=== PATIENT | male | born 1990 | race Caucasian/White ===

== ENCOUNTER 2017-09-25 09:26 | Outpatient (CLI) | payer MEDICARE, MEDICAID ==
[~2017-09-25 09:26] MED LIST: CLON0.5T23 PO; HYDR-569 PO; IBUP-1984 PO; OMEP20TA5 PO
== END 2017-09-25 10:06 | disposition home or self-care (01) ==
LOC: WOUND CARE 09:26 → EDSTATUS 09:30 → WOUND CARE 10:06
PROVIDERS: ATTEND Surgery
DX: L98.491 Non-pressure chronic ulcer of skin of other sites limited to breakdown of skin (principal); F41.9 Anxiety disorder, unspecified; I10 Essential (primary) hypertension; K21.9 Gastro-esophageal reflux disease without esophagitis; G43.909 Migraine, unspecified, not intractable, without status migrainosus; E66.01 Morbid (severe) obesity due to excess calories; F17.210 Nicotine dependence, cigarettes, uncomplicated
CPT/HCPCS: 99215; A6266; A6446

== ENCOUNTER 2017-09-30 09:30 | Outpatient (CLI) | payer MEDICARE, MEDICAID ==
[~2017-09-30 09:30] MED LIST changes: -IBUP-1984 PO
== END 2017-09-30 10:47 | disposition home or self-care (01) ==
LOC: WOUND CARE 09:30 → EDSTATUS 09:30 → WOUND CARE 10:47
PROVIDERS: ATTEND Surgery
DX: L98.491 Non-pressure chronic ulcer of skin of other sites limited to breakdown of skin (principal); I10 Essential (primary) hypertension; K21.9 Gastro-esophageal reflux disease without esophagitis; G43.909 Migraine, unspecified, not intractable, without status migrainosus; E66.01 Morbid (severe) obesity due to excess calories; F41.9 Anxiety disorder, unspecified; F17.210 Nicotine dependence, cigarettes, uncomplicated
CPT/HCPCS: 99211; A6266; A6446

== ENCOUNTER 2017-10-08 08:49 | Day surgery (SDC) | payer MEDICARE, MEDICAID ==
[2017-10-08] MEDS ORDERED: LIDOcaine 2% 5ml jelly ONE (09:56)
== END 2017-10-08 10:30 | disposition home or self-care (01) ==
LOC: WOUND CARE 08:49
PROVIDERS: ATTEND Surgery
DX: T81.89XD Other complications of procedures, not elsewhere classified, subsequent encounter (principal); L98.491 Non-pressure chronic ulcer of skin of other sites limited to breakdown of skin; I10 Essential (primary) hypertension; K21.9 Gastro-esophageal reflux disease without esophagitis; G43.909 Migraine, unspecified, not intractable, without status migrainosus; E66.01 Morbid (severe) obesity due to excess calories; F41.9 Anxiety disorder, unspecified; F17.210 Nicotine dependence, cigarettes, uncomplicated; Y83.8 Other surgical procedures as the cause of abnormal reaction of the patient, or of later complication, without mention of misadventure at the time of the procedure
CPT/HCPCS: 97597; A6021

== ENCOUNTER 2017-10-22 08:55 | Day surgery (SDC) | payer MEDICARE, MEDICAID ==
[2017-10-22] MEDS ORDERED: LIDOcaine 2% 5ml jelly ONE (09:30)
== END 2017-10-22 10:14 | disposition home or self-care (01) ==
LOC: WOUND CARE 08:55
PROVIDERS: ATTEND Surgery
DX: L98.491 Non-pressure chronic ulcer of skin of other sites limited to breakdown of skin (principal); I10 Essential (primary) hypertension; K21.9 Gastro-esophageal reflux disease without esophagitis; G43.909 Migraine, unspecified, not intractable, without status migrainosus; E66.01 Morbid (severe) obesity due to excess calories; F41.9 Anxiety disorder, unspecified; F17.210 Nicotine dependence, cigarettes, uncomplicated
CPT/HCPCS: 97597; A6021

== ENCOUNTER 2018-01-13 09:15 | Outpatient (CLI) | payer MEDICARE, MEDICAID ==
[~2018-01-13 09:15] MED LIST changes: +CEPH-572 PO; +IBUP-1985 PO
[2018-01-13] MEDS ORDERED: LIDOcaine 2% 5ml jelly ONE (09:31)
== END 2018-01-13 10:14 | disposition home or self-care (01) ==
LOC: WOUND CARE 09:15 → EDSTATUS 09:30 → WOUND CARE 10:14
PROVIDERS: ATTEND Surgery
DX: L98.491 Non-pressure chronic ulcer of skin of other sites limited to breakdown of skin (principal); I10 Essential (primary) hypertension; K21.9 Gastro-esophageal reflux disease without esophagitis; G43.909 Migraine, unspecified, not intractable, without status migrainosus; E66.01 Morbid (severe) obesity due to excess calories; F41.9 Anxiety disorder, unspecified; F17.210 Nicotine dependence, cigarettes, uncomplicated
CPT/HCPCS: 99215

== ENCOUNTER 2018-01-20 09:30 | Outpatient (CLI) | payer MEDICARE, MEDICAID ==
[~2018-01-20 09:30] MED LIST changes: -CEPH-572 PO
== END 2018-01-20 11:08 | disposition home or self-care (01) ==
LOC: WOUND CARE 09:30 → EDSTATUS 09:30 → WOUND CARE 11:08
PROVIDERS: ATTEND Surgery
DX: N49.2 Inflammatory disorders of scrotum (principal); L98.491 Non-pressure chronic ulcer of skin of other sites limited to breakdown of skin; I10 Essential (primary) hypertension; K21.9 Gastro-esophageal reflux disease without esophagitis; G43.909 Migraine, unspecified, not intractable, without status migrainosus; E66.01 Morbid (severe) obesity due to excess calories; F41.9 Anxiety disorder, unspecified; F17.210 Nicotine dependence, cigarettes, uncomplicated; Z79.899 Other long term (current) drug therapy
CPT/HCPCS: 99214

== ENCOUNTER 2020-03-24 14:31 | Emergency (ER) | payer MEDICARE, MEDICAID ==
[~2020-03-24] VITALS: Ht 170.2 cm; Wt 131.8 kg
[~2020-03-24 14:31] MED LIST changes: +HYDR-4383 PO; -HYDR-569 PO
[2020-03-24 15:02] VITALS: BP 130/84
[2020-03-24] MEDS ORDERED: HYDR-3965 PO (15:44)
[2020-03-24] MEDS ORDERED: ondansetron 4mg rapidly disintigrating tab PO ONE (15:45)
[2020-03-24] MEDS ORDERED: HYDROcodone/acetaminophen 5mg/325mg tablet PO ONE (15:45)
[2020-03-24] MEDS ORDERED: LORazepam 1 MG tablet PO ONE (15:45)
== END 2020-03-24 16:08 | disposition home or self-care (01) ==
LOC: ER 14:31
DX: K08.89 Other specified disorders of teeth and supporting structures (principal); K21.9 Gastro-esophageal reflux disease without esophagitis; F41.9 Anxiety disorder, unspecified; F32.9 Major depressive disorder, single episode, unspecified; Z86.14 Personal history of Methicillin resistant Staphylococcus aureus infection; Z79.899 Other long term (current) drug therapy
CPT/HCPCS: 99283

== ENCOUNTER 2020-07-03 18:38 | Emergency (ER) | payer MEDICARE, MEDICAID ==
[~2020-07-03] VITALS: Ht 170.2 cm; Wt 135.4 kg
[2020-07-03] MEDS ORDERED: LIDOcaine 1% W/epiNEPHrine 1:200,000 10ml vial IJ ONE (20:00)
[2020-07-03] MEDS ORDERED: DOXY100C76 PO (20:07)
--- NOTE | 2020-07-03 20:23 | NUR ---
SAMUEL SOTO AT BEDSIDE FOR I&D OF BUTTOCK ABSCESS.
[2020-07-03 20:44] VITALS: BP 139/102
[2020-07-03] MEDS ORDERED: HYDROcodone/acetaminophen 5mg/325mg tablet PO ONE (20:45)
== END 2020-07-03 20:50 | disposition home or self-care (01) ==
LOC: ER 18:39
DX: K61.0 Anal abscess (principal); K21.9 Gastro-esophageal reflux disease without esophagitis; F41.9 Anxiety disorder, unspecified; F32.9 Major depressive disorder, single episode, unspecified; Z86.14 Personal history of Methicillin resistant Staphylococcus aureus infection; Z79.899 Other long term (current) drug therapy
CPT/HCPCS: 10060; 46050; 99283; 99284

== ENCOUNTER → 2021-07-05 | Day surgery (SDC) | payer MEDICARE, MEDICAID ==
[2021-06-28 17:16] LABS: BASOPHILS # (AUTO) 0.1 X10'3 (0-0.2); BASOPHILS % (AUTO) 1.2 % (0-1); EOSINOPHILS # (AUTO) 0.2 X10'3 (0-0.9); LYMPHOCYTES # (AUTO) 2.4 X10'3 (1.1-4.8); LYMPHOCYTES % (AUTO) 24.1 % (21-51); MEAN CORPUSCULAR HEMOGLOBIN 32.1 PG (27.0-31.0); MEAN CORPUSCULAR HGB CONC 33.9 g/dL (33.0-36.5); MEAN CORPUSCULAR VOLUME 94.5 FL (78-98); MEAN PLATELET VOLUME 9.7 FL (7.4-10.4); MONOCYTES # (AUTO) 0.6 X10'3 (0-0.9); MONOCYTES % (AUTO) 6.4 % (2-12); NEUTROPHILS # (AUTO) 6.5 X10'3 (1.8-7.7); NEUTROPHILS % (AUTO) 66.3 % (42-75); PRE OP HEMATOCRIT 50.3 % (42.0-52.0); PRE OP HEMOGLOBIN 17.1 g/dL (14.0-17.9); PRE OP PLATELET COUNT 240 X10'3 (140-440); RED BLOOD COUNT 5.32 X10'6 (4.70-6.10)
[2021-06-28 17:29] LABS: ALBUMIN 3.3 G/DL (3.4-5.0); ALBUMIN/GLOBULIN RATIO 0.8 (1.1-1.5); ALKALINE PHOSPHATASE 103 IU/L (46-116); BLOOD UREA NITROGEN 12 MG/DL (7-18); BUN/CREATININE RATIO 14.3 (5.4-32.0); CALCIUM 8.5 MG/DL (8.5-10.1); CHLORIDE 105 MMOL/L (99-107); CREATININE 0.84 MG/DL (0.60-1.10); PRE OP ALT 40 U/L (30-65); PRE OP ANION GAP 11 (8-16); PRE OP AST 26 U/L (10-37); PRE OP BILIRUB, TOTAL 0.4 MG/DL (0.0-1.0); PRE OP GLUCOSE 91 MG/DL (70-104); PRE OP SODIUM 140 MMOL/L (135-145); TOTAL CARBON DIOXIDE 24.1 MMOL/L (24-32); TOTAL PROTEIN 7.4 G/DL (6.4-8.2); eGFR > 90 ML/MIN
[2021-06-28 17:36] LABS: PRE OP POTASSIUM 3.9 MMOL/L (3.4-5.1)
[~2021-07-05] VITALS: Ht 170.2 cm; Wt 131.5 kg
[~2021-07-05] MED LIST changes: +AMOX-441 PO; -HYDR-4383 PO; +IBUP-1984 PO; -IBUP-1985 PO; +ceFAZolin inj. 3,000 MG in normal saline 100ml IV soln 100 ML IV ONE; +famotidine 20mg tablet PO ONE; +ringers solution, lacted 1,000 ML IV SCH
== END | disposition home or self-care (01) ==
LOC: PAS 11:38
PROVIDERS: ATTEND Student in an Organized Health Care Education/Training Program
DX: Z01.818 Encounter for other preprocedural examination (principal); L72.8 Other follicular cysts of the skin and subcutaneous tissue; Z20.822 Contact with and (suspected) exposure to COVID-19
CPT/HCPCS: 36415; 80053; 85025; J0690; U0003; U0005; J7120